=== PATIENT | female | born 1985 | race African-American/Black ===

== ENCOUNTER 2022-09-09 19:46 | Emergency (ER) | payer BC, SELFPAY ==
[2022-09-09] VITALS (20 sets, daily range): BP systolic 147–174; BP diastolic 95–124; PULSE 78–105; RESP 15–32; TEMP 37; O2SAT 94–100
--- NOTE | 2022-09-09 20:55 | ED.GENADULT ---
HPI - General Adult General Chief complaint: Allergic Reaction Stated complaint: Allergic reaction Time Seen by Provider: 09/09/22 20:22 History of Present Illness HPI narrative: This is a 37-year-old female presenting ED with a chief complaint of facial swelling. Patient was working out underneath the arch earlier today. patient notes that she has had facial swelling triggered by exercise in the past. She also says there were dogs in the park which have also caused her to have allergies. The patient's symptoms included significant periorbital edema, throat itching and some wheezing. She denies urticaria, nausea vomiting or diarrhea. She did take some Children's Benadryl at home. Related Data Home Medications Medication Instructions Recorded Confirmed dextroamphetamine-amphetamine 10 10 mg PO BID 09/09/22 09/09/22 mg tablet (Adderall) olmesartan 20 tablet 09/09/22 mg-hydrochlorothiazide 12.5 mg tablet Allergies Allergy/AdvReac Type Severity Reaction Status Date / Time dog dander Allergy Swelling Verified 09/09/22 20:12 of the Eye [facility] Past Medical History Medical History ADHD Anaphylaxis Eczema Hypertension Social History Social History (Updated 09/09/22 @ 21:00 by Arthur Rosa MD) Social History: Uses alcohol occasionally, denies tobacco or drug use. Exam Narrative: APPEARANCE: No apparent distress. Head: periorbital edema EYES: EOMI, NOSE: Atraumatic NECK: Trachea midline, no stridor RESPIRATORY: No increased rate of breathing, no wheezing CARDIOVASCULAR: RRR, no peripheral edema ABDOMINAL: Non-distended MUSCULOSKELETAl: No obvious deformities NEURO: Alert. Moving 4/4 extremities SKIN:: Warm, dry. Normal color PSYCHIATRIC: Normal affect Course Vital Signs Vital signs: Vital Signs Temperature 98.6 F 09/09/22 19:50 Pulse Rate 105 H 09/09/22 19:50 Respiratory Rate 20 09/09/22 19:50 Blood Pressure 150/99 H 09/09/22 19:50 Pulse Oximetry 99 09/09/22 19:50 Oxygen Delivery Room Air 09/09/22 19:50 Temperature 98.6 F 09/09/22 19:50 Pulse Rate 86 09/09/22 22:31 Respiratory Rate 23 H 09/09/22 22:31 Blood Pressure 147/105 H 09/09/22 22:31 Pulse Oximetry 100 09/09/22 22:31 Oxygen Delivery Room Air 09/09/22 20:02 Medical Decision Making [facility] Narrative Medical decision making narrative: -Presentation: 37-year-old female presenting with facial swelling, wheezing and throat itching. She took Benadryl before her arrival which has improved some of her symptoms. -DDX includes but is not limited to: Exercise-induced allergies, environmental allergies -Co-morbidities complicating care: hypertension on losartan, ADHD, maximal -Social determinants of health: patient works as a social work case manager for [employer], lives with her daughter -External Chart Review: none -Hx from independent Sources: sister-Josi -Discussion of Management/Consultants: none -Independent interpretation of studies: none Dx tests considered but not ordered: none -Procedures: none -Interventions: 1 L normal saline, 40 mg Pepcid, 50 mg Benadryl, 0.3 mg IM epi, 10 mg dexamethasone, ice pack dyes -Shared decision making / Disposition: 37-year-old female presenting with allergies. Patient has multiple instances of exercise-induced allergies in the past and there are multiple case studies reporting exercised induced anaphylaxis. Patient will be discharged with an EpiPen and primary care follow-up with recommendations to see an nursery school attendant. -RX: EpiPen, Benadryl, Claritin Vital Signs Vital Signs: Vital Signs Temperature 98.6 F 09/09/22 19:50 Pulse Rate 105 H 09/09/22 19:50 Respiratory Rate 20 09/09/22 19:50 Blood Pressure 150/99 H 09/09/22 19:50 Pulse Oximetry 99 09/09/22 19:50 Oxygen Delivery Room Air 09/09/22 19:50 Temperature 98.6 F 09/09/22 19:50 P
[2022-09-09] MEDS: diphenhydrAMINE HCl INJ 50 MG/ML VIAL IV PUSH (21:11)
[2022-09-09] MEDS: FAMOTIDINE 20 MG/2 ML VIAL 40 MG IV PUSH (21:11)
[2022-09-09] MEDS: EPINEPHrine HCL INJ 1 MG/ML AMPUL 0.3 MG IM (21:12)
[2022-09-09] MEDS: SODIUM CHLORIDE 0.9% IV 1,000 ML 999 ML IV CONT (21:13)
== END 2022-09-09 23:30 | disposition home or self-care (01) ==
PROVIDERS: Emergency Provider Emergency Medicine
DX: T78.2XXA Anaphylactic shock, unspecified, initial encounter (principal); I10 Essential (primary) hypertension
CPT/HCPCS: 96361; 96372; 96374; 96375; 99284; J0171; J1100; J1200; J7030

== ENCOUNTER 2025-05-29 18:54 | Emergency (ER) | payer OTHER, SELFPAY ==
--- OUTSIDE RECORDS SUMMARY | 2025-05-29 18:56 | XMS_ITS | Encounter Summary ---
Author Organization [facility] Health Address [address] [place] [address] Care Team Providers Care Chro Name Role Phone Marlen Bonilla Elaine Primary Care Provider [phone] Reason for Visit * Reason Onset Date Comments Refill Request 10/10/2024 Encounter Details Date Type Department Care Team (Late st Contact Info) Description 10/10/2024 Telephone [facility] - Dermatology [address] [place] [address], [place] [id number] Ghazala Romeo PA [address] [place] [address] [address] [place] [address] Refill Request Social History Tobacco Use Types Packs/Day Years Used Date Smoking Tobacco: Never Alcohol Use Standard Drinks/Week Comments No 0 (1 standard drink = 0.6 oz pur e alcohol) Comments No Sex and Gender Information Value Date Recorded Sex Assigned at Not on file Legal Sex Female 5:34 AM SHOE SHINER Gender Identity Not on file Sexual Orientation Not on file documented as of this encounter Miscellaneous Notes * Telephone Encounter - Cindy Ni - 11/02/2024 9:12 AM CDT Called to check status of PA for Dupixent that was submitted on 10/17/24. I was told we will need to resubmit the pa again because their system has been down since Jul 2024 to October 24, 2024. Cindy Ni- Pharmacy Pipeline Operator (Dermatology) * Telephone Encounter - Cindy Ni - 10/17/2024 10:04 AM CDT PA submitted forcontinuation of therapy Dupixent 300mg/2ml pen maintenance dose of 300mg every 2 weeks via [employer] Medicaid[place] currently waiting on decision. Case ID: n/a Provider:[id number] (Ousmane) Cindy Ni Staff Certified Nurse Midwife - Pharmacy Pipeline Operator * Telephone Encounter - Karen Tolentino - 10/16/2024 12:19 PM CDT Pharmacy is requesting a medication refill for Dupixent 300 MG/2ML prefilled pen FAX#[phone] * Telephone Encounter - Tee Mansfield - 10/10/2024 1:57 PM CDT PT CALLED W/ CARELON ON LINE TO DISCUSS Dupixent 300 MG/2ML prefilled pen (Order [id number]) NOT SHOWING ON FILE PLS CALL PT [phone] AND OR CARELON Rx TO DISCUSS OR SEND SCRIPT, THANK YOU. documented in this encounter Plan of Treatment Upcoming Encounters Date Type Department Care Team (Late st Contact Info) Description 06/11/2025 1:50 PM SHOE SHINER Office Visit [facility] - Dermatology [address] [place] [address], [place] [address] Ghazala Romeo PA [address] [place] [address] [address] [place] [address] documented as of this encounter Visit Diagnoses Not on filedocumented in this encounter Care Teams Chro Relationship Specialty Start Date End Date Marlen Bonilla [address] [facility] [address] [place] [address] PCP - General Atomic Welder 04/11/24 documented as of this encounter
--- OUTSIDE RECORDS SUMMARY | 2025-05-29 18:56 | XMS_ITS | Clinical Summary ---
Author Organization [facility] Address [address] [place] [address] Care Team Providers Care Clerical Grader Name Role Phone Irene, Marlen Elaine Primary Care Provider [phone] Source Comments [facility],non-owned Affiliates and Associated Physician Practices is amultiple site organization consisting of ambulatory clinics and hospital sitesin [place], [place], [place] and [place]. This disclosure is being madepursuant to the Care Everywhere program and may not contain all information available regarding this patient. Last updated 18.[facility] Allergies No known active allergies Medications * Be aware that medications may not be up to date on this document. Alwaysverify current medications with the patient. cetirizine (ZyrTEC) 10 MG tablet Active olmesartan-hydr oCHLOROthiazide (Benicar HCT) 20-12.5 MG tablet Active escitalopram (Lexapro) 10 MG tablet Take 1 (one) tablet by mouth once daily Activ e EPINEPHrine (Epipen) 0.3 MG/0.3ML auto-injector pen as directed intramuscularly once for 30 days Active etonogestrel (Nexplanon) 68 MG implant Implanon [id number] dixie Active triamcinolone acetonide (Kenalog) 0.1 % cream Apply to affected area 2 times daily For atopic dermatitis from neck down. Do not apply to face 80 g 3 08/14/19 25 Active hydroquinone (Lustra; Eldoquin) 4 % creamIndication s:Melasma Compounded hydroquinone 4.5% /tretinoin 0.025%/fluocinolone 0.01%/niacinamide 4% . Apply to affected areaon face daily for 8 weeks on then 8 weeks off 30 g 08/14/19 25 Active Dupixent 300 MG/2ML prefilled penIndications: Other atopic dermatitis Inject 2 mL subcutaneously every 14 days Continuation of therapy 2 mL 11 10/14/19 25 Active amphetamine-dex troamphetamine XR 24hr (Adderall XR) 20 MG capsule Take 1 (one) capsule by mouth every morning Active clobetasol (Temovate) 0.05 % solutionIndicat ions:Central centrifugal cicatricial alopecia Apply to affected area on scalp once a day 30 day supply. 50 mL 3 12/09/19 25 Active ketoconazole (Nizoral) 2 % shampooIndicati ons:Central centrifugal cicatricial alopecia Apply to wet hair, leave on for 3 minutes, then rinse; three times weekly. 30 days supply 120 mL 4 12/09/19 25 Active doxycycline hyclate 100 MG tabletIndicatio ns:Central centrifugal cicatricial alopecia Take 1 (one) tablet by mouth 2 times daily 60 tablet 5 12/09/19 25 Active Immunizations Immunization Administration Dates Next Due TDAP (7yrs+) 01/17/2010 Family History Medical History Relation Name Comments Diabetes Father Hypertension Father Cancer Maternal Grandmother Hypercholesterolemia Mother Relation Name Status Comments Father Maternal Grandmother Mother Social History Tobacco Use Types Packs/Day Years Used Date Smoking Tobacco: Never Alcohol Use Standard Drinks/Week Comments No 0 (1 standard drink = 0.6 oz pur e alcohol) Comments No Sex and Gender Information Value Date Recorded Sex Assigned at Not on file Legal Sex Female 5:34 AM MONEY ORDER CLERK Gender Identity Not on file Sexual Orientation Not on file Last Filed Vital Signs Vital Sign Reading Time Taken Comments Blood Pressure 105/68 01/18/2010 9:20 AM CDT Pulse 79 01/18/2010 9:20 AM CDT Temperature 36.8 C (98.3 F) 01/18/2010 9:20 AM CDT Respiratory Rate 20 01/18/2010 9:20 AM CDT Oxygen Saturation 99% 01/16/2010 3:29 PM CDT Inhaled Oxygen Concentration - - Weight 75.3 kg (166 lb) 01/16/2010 12:27 PM CDT Height 160 cm (5' 3) 01/16/2010 12:27 PM CDT Body Mass Index 29.41 01/16/2010 12:27 PM CDT Plan of Treatment Upcoming Encounters Date Type Department Care Team (Late st Contact Info) Description 06/11/2025 1:50 PM MONEY ORDER CLERK Office Visit [facility] - Dermatology [address], [place] [id number] Ghazala Romeo PA [address] [facility] [address] [place] [id number] Health Maintenance Due Date Last Done Comments HIV SCREENING 2001 HEPATITIS B VACCINE (1 of 3 - 19+ 3-dose series) 2005 Cervical Cancer Screening 2007 PAP SMEAR 2007 HPV VACCINE (1 - 3-dose SCDM series) 2013 PAP with HPV 2016 DTAP/TDAP/TD VACCINES (2 - T d or Tdap) 01/18/2020 01/17/2010 DEPRESSION SCREENING 06/28/2024 COVID-19 VACCINE (1 - 2024-2 6 season) 2025 INFLUENZA VACCINE (#1) 2025 ZOSTER VACCINE (1 of 2) 2036 HEPATITIS C SCREENING Completed 03/22/2024 HIB VACCINE Aged Out No longer eligi ble based on patient's age to complete this topic MENINGOCOCCAL (Group B) VACC INE SHARED DECISION-MAKING Aged Out No longer eligibl e based on patient's age to complete this topic MENINGOCOCCAL GROUPS A/C/Y/W VACCINE Aged Out No longer eligible b ased on patient's age to complete this topic PNEUMOCOCCAL VACCINE Aged Out No long er eligible based on patient's age to complete this topic Insurance [facility] Advance Directives * Full Code (Latest Code Status on File) Date Activated Date Inactivated Comments 01/16/2010 12:44 PM 01/19/2010 3:29 AM * Full Code Date Activated Date Inactivated Comments 01/16/2010 12:42 PM 01/16/2010 12:44 PM Care Teams Clerical Grader Relationship Specialty Start Date End Date Marlen Bonilla [address] [facility] [address] [place] [address] PCP - General Traffic Engineering Technician 04/11/24
--- OUTSIDE RECORDS SUMMARY | 2025-05-29 18:56 | XMS_ITS | Clinical Summary ---
Author Organization [facility] Address [facility] access [facility] [place] [address] Care Team Providers Care Scrap Cutter Name Role Phone Marlen Bonilla BUSHWALKING GUIDE Primary Care Provider [phone] Allergies No known active allergies Medications ADDERALL XR 20 MG 24 hr capsule 024 Active cetirizine (ZYRTEC ALLERGY) 10 MG tablet Active EPINEPHrine (EPIPEN 2-RYAN) 0.3 MG/0.3ML injection as directed intramuscularly once for 30 days Active escitalopram (LEXAPRO) 10 MG tablet Take 1 tablet (10 mg total) by mouth daily. Active etonogestrel (IMPLANON) 68 MG SC implant Inject into the skin once. Placed October 2024 Active triamcinolone (KENALOG) 0.1 % creamIndication s:Intrinsic eczema,Eczema of face Apply topically 2 (two) times daily. Rash on neck, face, hands 45 g 2 024 Active doxycycline hyclate (VIBRA-TABS) 100 MG tablet Take 1 tablet (100 mg total) by mouth 2 (two) times daily. PRN 025 Active DUPIXENT 300 MG/2ML injection (PEN) 025 Active ketoconazole (NIZORAL) 2 % shampoo 025 Active folic acid (FOLVITE) 1 MG tablet Take 1 tablet (1 mg total) by mouth daily. Active clobetasol (TEMOVATE) 0.05 % external solution Apply topically 2 (two) times daily. 025 Active Hydroquinone 4 % Cream Compounded hydroquinone 4.5% /tretinoin 0.025%/fluocinolon e 0.01%/niacinamide 4% . Apply to affected areaon face daily for 8 weeks on then 8 weeks off 025 Active Olmesartan Medoxomil-HCTZ 20-12.5 MG TabIndications: Benign essential hypertension Take 1 tablet by mouth daily. 90 tablet 1 025 Active Cholecalciferol (D3 5000) 125 MCG (5000 UT) Cap Take 5,000 Units by mouth daily. 025 Active Na sulfate-K sulfate-Mg sulfate (SUPREP BOWEL PREP KIT) 17.5-3.13-1.6 GM/177ML SolutionIndicat ions:Screening for colon cancer,Family history of colon cancer requiring screening colonoscopy Take 177 mLs by mouth every 12 (twelve) hours. Per GI instructions 354 mL 024 2024 Discontinued Active Problems Problem Noted Date Diagnosed Date Closed nondisplaced fracture of fifth metatarsal bone of right foot with routine healing, subsequent encounter 05/11/2025 Family history of colon canc er requiring screening colonoscopy 05/17/2024 Attention deficit hyperactiv ity disorder (ADHD), combined type 03/22/2024 Benign essential hypertension 03/22/2024 Allergic rhinitis, unspecifi ed seasonality, unspecified trigger 03/22/2024 Intrinsic eczema 03/22/2024 Family history of colon cancer 03/22/2024 Resolved Problems Problem Noted Date Diagnosed Date Resolved Date Screening for colon cancer 05/17/2024 1 07/22/2023 Encounters Date Type Department Care Team Description 05/13/2025 [facility] [place] [facility] [place] [address] [facility] [address] [place] [address] Marlen Bonilla, BUSHWALKING GUIDE ALBUMIN URINE RANDOM W/CREATININE, HEMOGLOBIN, GLYCOSYLATED, COMPREHENSIVE METABOLIC PANEL, CBC W/DIFF 05/11/2025 9:00 AM ANIMAL RIDE ATTENDANT [facility] [place] [address] [place] [address] Marlen Bonilla, BUSHWALKING GUIDE Physical 05/11/2025 Travel 05/07/2025 Travel 04/24/2025 Scan [facility] Scanned, [facility] 04/13/2025 Scan [facility] Scanned, [facility] from Last 3 Months Immunizations Immunization Administration Dates Next Due Dtp (Generic) 03/14/1991, 8,04/26/1987,1986,1986 Fluzone (IIV3, Trivalent, 0. 5 ML Prefilled Syringe) 05/11/2025 HPV GARDASIL 9-VALENT 10/26/2024,03/10/2021,12/26 MMR (MMRII) 04/16/1993 Polio Opv (Generic) 03/14/1991, 9,04/26/1987,1986,1986 Tdap (Adacel) 03/22/2024 Tdap (Generic) 01/17/2010 Family History Medical History Relation Comments Diabetes Father Managed with med ication Hypertension Father Managed with med ication Prostate Cancer Father Cancer Maternal Grandmother - L dilshad Cancer- Smoker Cancer Maternal Uncle 1 - [place] n Cancer Cancer Maternal Uncle 2 -Lung C ancer Hyperlipidemia Mother - Was ma naged with medication Hypertension Mother Colon Cancer Sister 1 Mets to lung and liver Hypertension Sister 1 Hypertension Sister 2 Managed with med ication Relation Status Comments Father Maternal Grandmother Maternal Uncle 1 Maternal Uncle 2 Mother Sister 1 Sister 2 Social History Tobacco Use Types Packs/Day Years Used Date Smoking Tobacco: Never Smokeless Tobacco: Never Tobacco Cessation:Counseling Given: No Alcohol Use Standard Drinks/Week Comments Yes 2 (1 standard drink = 0.6 oz pure alcohol) I drink socially with friends, at events, etc PHQ-2 Answer Date Recorded Patient Health Questionnaire-2 Score 0 05/17/2024 Comments No Sex and Gender Information Value Date Recorded Sex Assigned at Female 03/21/2024 8:04 AM CDT Legal Sex Female 7:19 PM CDT Gender Identity Female 03/21/2024 8:04 AM CDT Sexual Orientation Straight 03/21/2024 8: 04 AM CDT Last Filed Vital Signs Vital Sign Reading Time Taken Comments Blood Pressure 122/82 05/11/2025 9:59 AM ANIMAL RIDE ATTENDANT Pulse 62 05/11/2025 9:15 AM ANIMAL RIDE ATTENDANT Temperature 36.4 C (97.6 F) 05/11/2025 9:15 AM ANIMAL RIDE ATTENDANT Respiratory Rate 16 05/11/2025 9:15 AM ANIMAL RIDE ATTENDANT Oxygen Saturation 100% 05/11/2025 9:15 AM ANIMAL RIDE ATTENDANT Inhaled Oxygen Concentration - - Weight 74.6 kg (164 lb 6.4 oz) 10/26/2024 9:51 A M CDT Height 160 cm (5' 3) 05/11/2025 9:15 AM ANIMAL RIDE ATTENDANT Body Mass Index 29.12 10/26/2024 9:51 AM CDT Plan of Treatment Upcoming Encounters Date Type Department Care Team (Late st Contact Info) Description 11/09/2025 8:40 AM CDT Office Visit [facility] [place] [address] [facility] [address] [place] [address] Marlen Bonilla, BUSHWALKING GUIDE [address] [facility] [address] [place] [address] Health Maintenance Due Date Last Done Comments Cervical Cancer Screening Pap Smear (Age 30 to 64) Every 3 Years 1986 Cervical Cancer Screening Pap with HPV Testing (Age 30 to 64) Every 5 Years 2016 Cervical Cancer Screening with HPV 2016 PHQ-2 (Physician [place]) 06/28/2024 05/17/2024 Annual Physical 05/11/2026 05/11/2025, 03/22/2024 COVID-19 Vaccine (2024- season) 2026 03/19/2022, 05/28/2021, 10/30/2020, Additional history exists Postponed from 02/26/2025 (Patient Refused) Hepatitis B Vaccines (1 of 3 - 19+ 3-dose series) 05/14/2026 Postponed from 2005 (Awaiting Documentation) DTaP, Tdap and Td Vaccines (8 - Td or Tdap) 03/22/2034 03/22/2024, 01/17/2010, 03/14/1991, Additional history exists Hepatitis C Completed 03/22/2024 HPV Vaccines Completed 10/26/2024, 02/26, 01/07/2021 Influenza Adult Completed 05/11/2025 Hepatitis A Vaccines Aged Out No long er eligible based on patient's age to complete this topic Meningococcal B Vaccine Aged Out No l onger eligible based on patient's age to complete this topic Meningococcal Vaccine Aged Out No haleigh gabriele eligible based on patient's age to complete this topic Pneumococcal Vaccine: Pediatrics (0 to 5 Years) and At-Risk Patients (6 to 49 Years) Aged Out No longer eligible based on patient's age to complete this topic RSV Immunizations Under 20 Months Aged Out No longer eligible based on patient's age to complete this topic Procedures Procedure Name Priority Date/Time Associated Diagnosis Comments CBC W/DIFF AUTOMATED Routine 05/11/2025 10:10 AM ANIMAL RIDE ATTENDANT Benign essential hypertension COMPREHENSIVE METABOLIC PANEL Routine 05/11/2025 10:10 AM ANIMAL RIDE ATTENDANT Benign essential hypertension HEMOGLOBIN, GLYCOSYLATED Routine 05/11/2025 10:10 AM ANIMAL RIDE ATTENDANT Screening for diabetes mellitus ALBUMIN URINE RANDOM W/CREATININE Routine 05/11/2025 10:10 AM ANIMAL RIDE ATTENDANT Protein screening HEPATITIS C ANTIBODY Routine 03/22/2024 3:17 PM CDT Need for hepatitis C screening test from Last 3 Months or Most Recently Relevant to Health Maintenance Results * (ABNORMAL) HEMOGLOBIN, GLYCOSYLATED (05/11/2025 10:10 AM ANIMAL RIDE ATTENDANT) HGB A1C 5.4 4.5 - 6.2 % 05/11/2025 3:59 PM ANIMAL RIDE ATTENDANT [facility] ESTIMATED AVG GLUCOSE 108(H) 74 - 106 MG/DL 05/11/2025 3:59 PM ANIMAL RIDE ATTENDANT [facility] BLOOD VENOUS BLOOD SPECIMEN / Unknown 05/11/2025 10:10 AM ANIMAL RIDE ATTENDANT us Marlen Bonilla NP LABORATORY Final Resul t [facility] LEWIS, FRESNO [address] [place] [place] [address], [place] [phone] * (ABNORMAL) COMPREHENSIVE METABOLIC PANEL (05/11/2025 10:10 AM ANIMAL RIDE ATTENDANT) [facility] SODIUM S/P/B 139 136 - 145 MMOL/L 05/11/2025 4:[address] [facility] POTASSIUM S/P/B 3.8 3.5 - 5.1 MMOL/L 05/11/2025 4:[address] [facility] CHLORIDE S/P/B 103 98 - 107 MMOL/L 05/11/2025 4:[address] [facility] CO2 27.2 21 - 32 MMOL/L 05/11/2025 4:[address] [facility] GLUCOSE 81 70 - 99 MG/DL 05/11/2025 4:[address] [facility] BUN 19(H) 7 - 18 MG/DL 05/11/2025 4:[address] [facility] CREATININE S/P/B 0.90 0.55 - 1.02 MG/DL 05/11/2025 4:[address] [facility] CALCIUM S/P/B 8.9 8.4 - 10.5 MG/DL 05/11/2025 4:[address] [facility] BILIRUBIN TOTAL S/P/B 0.3 0.2 - 1.0 MG/DL 05/11/2025 4:[address] [facility] ALKALINE PHOSPHATASE S/P/B 63 37 - 98 U/L 05/11/2025 4:[address] [facility] AST 16 15 - 37 U/L 05/11/2025 4:[address] [facility] ALT 22 14 - 59 U/L 05/11/2025 4:[address] [facility] TOTAL PROTEIN S/P/B 7.0 6.4 - 8.2 G/DL 05/11/2025 4:21 PM ANIMAL RIDE ATTENDANT [facility] ALBUMIN S/P/B 3.7 3.4 - 5.0 G/DL 05/11/2025 4:21 PM ANIMAL RIDE ATTENDANT [facility] ANION GAP 8.8 5 - 15 MMOL/L 05/11/2025 4:21 PM ANIMAL RIDE ATTENDANT [facility] FRESNO Comment:REFERENCE RANGE NOT ESTABLISHED OSMOLALITY (CALC) 289 MOSM/KG 025 4:21 PM ANIMAL RIDE ATTENDANT [facility] FRES[facility] Comment:REFERENCE RANGE NOT ESTABLISHED GFR ESTIMATE 83(L) >90 ML/MIN/1. 73 M2 05/11/2025 4:21 PM ANIMAL RIDE ATTENDANT [facility] GFR NOTES GFR REFERENCE S: 05/11/2025 4:21 PM [facility] Comment: THE ESTIMATED GFR IS CALCULATED USING THE 2020 CKD-EPI EQUATION. THE FOLLOWING CATEGORIES FOR GRADING RENAL FUNCTION ARE RECOMMENDED BY THE INTERNATIONAL SOCIETY OF NEPHROLOGY (KDIGO 2012 CLINICAL PRACTICE GUIDELINE). G1,NORMAL OR HIGH: >89 ml/min/1.73 m2 G2,MILDLY DECREASED: 60-89 ml/min/1.73 m2 G3A,MILDLY TO MODERATELY DECREASED: 45-59 ml/min/1.73 m2 G3B,MODERATELY TO SEVERELY DECREASED: 30-44 ml/min/1.73 m2 G4,SEVERELY DECREASED: 15-29 ml/min/1.73 m2 G5,KIDNEY FAILURE: <15 ml/min/1.73 m2 BLOOD VENOUS BLOOD SPECIMEN / Unknown 05/11/2025 10:10 AM ANIMAL RIDE ATTENDANT us Marlen Bonilla NP LABORATORY Final Resul t [facility] [address] [place] [address], * (ABNORMAL) CBC W/DIFF (05/11/2025 10:10 AM ANIMAL RIDE ATTENDANT) WBC 6.19 4.00 - 10.80 x10'3/uL 05/11/2025 2:45 PM ANIMAL RIDE ATTENDANT [facility] RBC 4.24 4.10 - 5.40 x10'6/uL 05/11/2025 2:[address] [facility] HGB 11.7(L) 12.0 - 16.0 G/DL 05/11/2025 2:[address] [facility] HCT 36.7 36.0 - 47.0 % 05/11/2025 2:[address] [facility] MCV 86.6 78.0 - 100.0 FL 05/11/2025 2:[address] [facility] MCH 27.6 27.0 - 31.0 PG 05/11/2025 2:[address] [facility] MCHC 31.9(L) 33.0 - 36.0 G/DL 05/11/2025 2:[address] [facility] RDW 14.2 11.5 - 14.5 % 05/11/2025 2:[address] [facility] PLT 409(H) 150 - 350 x10'3/uL 05/11/2025 2:[address] [facility] MPV 10.4 7.4 - 10.4 FL 05/11/2025 2:[address] [facility] DIFFERENTIAL TYPE AUTOMATED DIFFERENTIAL 05/11/2025 2:[address] [facility] NEUTROPHILS % 57.1 % 05/11/2025 2:[address] [facility] LYMPHOCYTES % 31.7 % 05/11/2025 2:[address] [facility] MONOCYTES % 9.7 % 05/11/2025 2:[address] [facility] EOSINOPHILS % 1.0 % 05/11/2025 2:[address] [facility] BASOPHILS % 0.3 % 05/11/2025 2:[address] [facility] IMMATURE GRANS % 0.2 % 05/11/2025 2:45 PM ANIMAL RIDE ATTENDANT [facility] ABS. NEUTROPHILS 3.54 1.60 - 8.30 x10'3/uL 05/11/2025 2:45 PM ANIMAL RIDE ATTENDANT [facility] ABS. LYMPHOCYTES 1.96 0.80 - 4.70 x10'3/uL 05/11/2025 2:45 PM ANIMAL RIDE ATTENDANT [facility] ABS. MONOCYTES 0.60 0.00 - 1.50 x10'3/uL 05/11/2025 2:45 PM ANIMAL RIDE ATTENDANT [facility] ABS. EOSINOPHILS 0.06 0.00 - 0.40 x10'3/uL 05/11/2025 2:45 PM ANIMAL RIDE ATTENDANT [facility] ABS. BASOPHILS 0.02 0.00 - 0.20 x10'3/uL 05/11/2025 2:45 PM ANIMAL RIDE ATTENDANT [facility] ABS. IMMATURE GRANULOCYTES 0.01 0.00 - 0.03 x10'3/uL 05/11/2025 2:45 PM ANIMAL RIDE ATTENDANT [facility] BLOOD VENOUS BLOOD SPECIMEN / Unknown 05/11/2025 10:10 AM ANIMAL RIDE ATTENDANT Marlen Bonilla NP LABORATORY Final Resul t [facility] [address] [place] [address], * ALBUMIN URINE RANDOM W/CREATININE (05/11/2025 10:10 AM ANIMAL RIDE ATTENDANT) MICROALBUMIN (U) 5.8 <20 MG/L 05/11/20 3:31 PM ANIMAL RIDE ATTENDANT [facility] CREATININE RANDOM (U) 167.5 MG/DL 05/11/2025 3:31 PM ANIMAL RIDE ATTENDANT [facility] ALBUMIN/CREAT RATIO 3.5 <30 MG/G 05/11/2025 3:31 PM ANIMAL RIDE ATTENDANT [facility] URINE URINE SPECIMEN OBTAINED BY CLEAN CATCH PROCEDURE / Unknown 05/11/2025 10:10 AM ANIMAL RIDE ATTENDANT Marlen Bonilla NP URINE ORDERABLES Final Resu lt -LEVI LALAHUCarlita FRESNO [address] [place] [address], * HEPATITIS C ANTIBODY (03/22/2024 3:17 PM CDT) HEPATITIS C AB NON-REACTI VE NON-REACT TREY 03/24/2024 12:22 PM CDT [facility] Comment: ANTIBODIES TO HCV NOT DETECTED. DOES NOT EXCLUDE THE POSSIBILITY OF EXPOSURE TO HCV. 03/22/2024 3:17 PM CDT Marlen Bonilla NP LABORATORY Final Resul t Performing Organization Address City/State/[facility] Co de Phone Number [facility] [address] [place] [address], [place] [phone] from Last 3 Months or Most Recently Relevant to Health Maintenance Insurance MEDICAID [employer] Care Teams Scrap Cutter Relationship Specialty Start Date End Date Marlen Bonilla NP [address] [facility] [address] [place] [address] PCP - General NURSE PRACTITIONER 03/22/24
--- OUTSIDE RECORDS SUMMARY | 2025-05-29 18:56 | XMS_ITS | Encounter Summary ---
Author Organization [facility] Address [address] [facility] [place] [address] Care Team Providers Care Bone Worker Name Role Phone Marlen Bonilla Elaine Primary Care Provider [phone] Reason for Visit * Reason Onset Date Comments MEDICATION REFILL 08/27/2024 Encounter Details Date Type Department Care Team (Late st Contact Info) Description 08/27/2024 Refill [facility] - Dermatology [address] [place] [address], [place] [id number] Ghazala Romeo PA [address] [place] [address] [address] [place] [address] MEDICATION REFILL Social History Tobacco Use Types Packs/Day Years Used Date Smoking Tobacco: Never Alcohol Use Standard Drinks/Week Comments No 0 (1 standard drink = 0.6 oz pur e alcohol) Comments No Sex and Gender Information Value Date Recorded Sex Assigned at Not on file Legal Sex Female 5:34 AM MANAGER [employer] INS[employer] Gender Identity Not on file Sexual Orientation Not on file documented as of this encounter Miscellaneous Notes * Telephone Encounter - Kimberly Corea - 08/28/2024 10:43 AM CST Requested Prescriptions Pending Prescriptions Disp Refills Dupixent 300 MG/2ML prefilled pen 2 mL 11 Sig: Inject 2 mL subcutaneously every 14 days Continuation of therapy Last visit: 08/14/24 Next visit: 09/06/24 No Lab Kimberly Corea [employer]ER [employer] INSUR[employer] documented in this encounter Plan of Treatment Upcoming Encounters Date Type Department Care Team (Late st Contact Info) Description 06/11/2025 1:50 PM MANAGER LIFE INSURANCE Office Visit [facility] - Dermatology [address] [facility], [place] [address] Ghazala Romeo PA [address] [place] [address] [address] [place] [id number] documented as of this encounter Visit Diagnoses Diagnosis Other atopic dermatitis documented in this encounter Care Teams Bone Worker Relationship Specialty Start Date End Date Marlen Bonilla [address] [facility] [address] [place] [address] PCP - General Chemical Tank Worker 04/11/24 documented as of this encounter
--- OUTSIDE RECORDS SUMMARY | 2025-05-29 18:56 | XMS_ITS | Clinical Summary ---
Author Organization [facility] Address [address] [place] [address] Phone Care Team Providers Care Kiln Firer Name Role Phone Teresa Savage MD Primary Care Provider Allergies No known active allergies Medications dextroamphetami ne-amphetamine (ADDERALL) 10 mg tablet Take 10 mg by mouth 2 times daily. 2 Active escitalopram oxalate (LEXAPRO) 10 mg tablet Take 10 mg by mouth daily. Active doxycycline hyclate (VIBRAMYCIN) 100 mg tablet Take 100 mg by mouth 2 times daily. Active dupilumab (Dupixent Pen) 300 mg/2 mL Pen Injector Inject 300 mg by subcutaneous injection every 2 weeks. 5 Active cholecalciferol (VITAMIN D3) 400 unit Tablet Take 10 mcg by mouth daily. Active cetirizine (ZyrTEC) 10 mg tablet 1 tab(s) orally once a day for 30 days 3 Active clobetasoL (TEMOVATE) 0.05 % Solution APPLY TOPICALLY TO THE AFFECTED AREA ON SCALP ONCE DAILY DIRECTED Active etonogestreL (NEXPLANON) 68 mg Implant Inject by subcutaneous injection. Active folic acid (FOLVITE) 1 mg tablet Take 1 mg by mouth daily. Active ketoconazole (NIZORAL) 2 % Shampoo 5 Active triamcinolone acetonide (KENALOG) 0.1 % Cream Apply to affected area 2 times daily. 4 Active olmesartan (BENICAR) 20 mg tablet 1 tab(s) orally once a day Active olmesartan-hydr oCHLOROthiazide (BENICAR-HCT) 20-12.5 mg tablet Take 1 Tablet by mouth daily. 5 Active oxyCODONE (ROXICODONE) 5 mg tablet Take 5 mg by mouth every 6 hours as needed for Pain. 5 Active norethindrn a-e estradiol-iron (Microgestin FE 07/17, ,) 1 mg-20 mcg (21)/75 mg (7) tabletIndicatio ns:Menometrorrh agia Take 1 Tablet by mouth daily. 28 Tablet 2 5 Active Active Problems No known active problems Encounters Date Type Department Care Team Description 05/01/2025 10:20 AM SNUFF DRIER Office Visit [facility] [address] [facility] [address] [address] [facility] [address] [place] [phone] David Ye MD Menometrorrhagia (Primary Dx) 05/01/2025 9:00 AM SNUFF DRIER Ancillary Procedure [facility] [address] [facility] [address] [address] [facility] [address] [place] [phone] David Ye MD Menometrorrhagia 04/17/2025 External Device Data STL ABSTRACTION Provider, Abstract 04/13/2025 7:50 AM CDT Office Visit [facility] [address] [facility] [address] [address] [facility] [address] [place] [phone] David Ye MD Menometrorrhagia (Primary Dx) from Last 3 Months Immunizations Immunization Administration Dates Next Due (ADACEL/BOOSTRIX)(10 YR UP) TDAP VACCINE, 0.5ML, IM 03/22/2024,01/17/2010 (GARDASIL 9)(9-45 YRS) HUMAN PAPILLOMAVIRUS VACCINE, TYPES 6, 11, 16, 18, 31, 33, 45, 52, 58, NONAVALENT (9VHPV), 2 OR 3 DOSE, IM 03/10/2021,01/07/2021 (M-M-R II/PRIORIX)(12 MO UP) MEASLES, MUMPS AND RUBELLA VIRUS VACCINE, 0.5 ML IM/SUBCUT 04/16/1993 Diptheria, Tetanus Toxoids, And Whole Cell Pertussis Vaccine (DTP), for intramuscular use 03/14/1991,05/19/1988,04/26/1987,08/27,1986 Poliovirus Vaccine Live Oral 03/14/1991, 09/15/1988,04/26/1987,08/27,1986 Family History Medical History Relation Name Comments Breast Cancer Neg Hx Ovarian Cancer Neg Hx Uterine Cancer Neg Hx Social History Tobacco Use Types Packs/Day Years Used Date Smoking Tobacco: Never Smokeless Tobacco: Never Tobacco Cessation:Counseling Given: Not Answered Comments:hookah Alcohol Use Standard Drinks/Week Comments Yes 0 (1 standard drink = 0.6 oz pur e alcohol) occ Comments No Sex and Gender Information Value Date Recorded Sex Assigned at Female 08/24/2023 12:52 PM SNUFF DRIER Legal Sex Female 2:59 PM CDT Gender Identity Female 08/24/2023 12:52 PM SNUFF DRIER Sexual Orientation Straight 08/24/2023 12 :52 PM SNUFF DRIER Last Filed Vital Signs Vital Sign Reading Time Taken Comments Blood Pressure 122/80 05/01/2025 10:35 AM SNUFF DRIER Pulse 75 07/29/2020 9:10 AM SNUFF DRIER Temperature 36.2 C (97.2 F) 07/29/2020 8:48 AM SNUFF DRIER Respiratory Rate 18 07/29/2020 8:30 AM SNUFF DRIER Oxygen Saturation 100% 07/29/2020 9:10 AM SNUFF DRIER Inhaled Oxygen Concentration - - Weight 83.5 kg (184 lb) 05/01/2025 10:35 AM SNUFF DRIER Height 160 cm (5' 3) 05/01/2025 10:35 AM SNUFF DRIER Body Mass Index 32.59 05/01/2025 10:35 AM SNUFF DRIER Plan of Treatment Health Maintenance Due Date Last Done Comments Pre-Diabetes and Diabetes Screening 1985 HEPATITIS B VACCINES (1 of 3 - 19+ 3-dose series) 2005 INFLUENZA VACCINE (#1) 2025 PAP SMEAR 10/14/2027 10/13/2024, 03/0 06/2023, 12/02/2021, Additional history exists CERVICAL CANCER SCREENING 10/13/2029 HPV/Cotest (21-29) 10/13/2029 10/13/2024, 0 08/27/2023, 12/02/2021, Additional history exists HPV/Cotest (30-65) 10/13/2029 10/13/2024, 0 08/27/2023, 12/02/2021, Additional history exists DTAP/TDAP/TD VACCINES (8 - T d or Tdap) 03/22/2034 03/22/2024, 01/17/2010, 03/14/1991, Additional history exists HPV VACCINES Completed 10/26/2024, 02/26, 01/07/2021 Procedures Procedure Name Priority Date/Time Associated Diagnosis Comments US PELVIC TRANSVAGINAL Routine 05/01/2025 9:08 AM SNUFF DRIER Menometrorrhagia CERV/VAG CYTO AGE BASED SCREEN PAP W CT/NG, TRICH Routine 10/13/2024 11:49 AM CDT Encounter for gynecological examination without abnormal finding from Last 3 Months or Most Recently Relevant to Health Maintenance Results * US PELVIC TRANSVAGINAL (05/01/2025 9:08 AM SNUFF DRIER) Anatomical Region Laterality Modality Pelvis Ultrasound 05/01/2025 8:47 AM SNUFF DRIER Narrative 05/01/2025 9:45 AM SNUFF DRIER CLINIC PELVIC ULTRASOUND ----- Pat. Name: REYNA GIBSON Study Date: 05/01/2025 8:47am Pat. NO: [id number] Referring MD: DAVID YE Site: [address] Building Rental Manager: Tarah Brar RDMS : 1985 Age: 40 ----- INDICATION ----- Menometrorrhagia (Excessive/Frequent Menstruation) CODING ----- Diagnoses N92.1: Breakthrough bleeding Procedures 90240: Ultrasound non OB transvaginal METHOD ----- LEAFLET OR NEWSPAPER DELIVERER Transvaginal US Examination UTERUS ----- Long 93 mm x ap 53 mm x tr 55 mm. Vol 138.8 cm Position: anteverted Myometrium: homogeneous Endometrium: normal. Endometrial thickness, total 8.1 mm Cervix details: contains cystic lesions identified suggesting superficial Nabothian cysts RIGHT OVARY ----- is appropriately sized. Outline: Smooth contours. Size 29 mm x 28 mm x 23 mm. Vol 9.5 cm Cyst(s) Size 15 mm x 8 mm x 15 mm. Mean 12.8 mm. Vol 0.983 cm . Simple LEFT OVARY ----- Enlarged (>= 10 mL). Outline: Smooth contours. Size 45 mm x 37 mm x 25 mm. Vol 21.0 cm Cyst(s) Size 38 mm x 23 mm x 29 mm. Mean 30.0 mm. Vol 13.370 cm . Simple CUL DE SAC ----- No free fluid is seen IMPRESSION ----- Normal follicular activity noted. Procedure Note David Ye MD - 05/01/2025 [facility] PELVIC ULTRASOUND ----- Pat. Name:Gary GIBSONudhenny Date:05/01/2025 8:47am Pat. NO: [id number] MD:DAVID YE Site:[place] [address]ASonographer:Tarah Brar RDMS :1985Age:40 ----- INDICATION ----- Menometrorrhagia (Excessive/Frequent Menstruation) CODING ----- Diagnoses N92.1: Breakthrough bleeding Procedures 10801: Ultrasound non OB transvaginal METHOD ----- LEAFLET OR NEWSPAPER DELIVERER Transvaginal US Examination UTERUS ----- Long 93 mm x ap 53 mm x tr 55 mm. Vol 138.8 cm Position: anteverted Myometrium: homogeneous Endometrium: normal. Endometrial thickness, total 8.1 mm Cervix details: contains cystic lesions identified suggesting superficial Nabothian cysts RIGHT OVARY ----- is appropriately sized. Outline: Smooth contours. Size 29 mm x 28 mm x 23mm. Vol 9.5 cm Cyst(s) Size 15 mm x 8 mm x 15 mm. Mean 12.8 mm. Vol 0.983cm . Simple LEFT OVARY ----- Enlarged (>= 10 mL). Outline: Smooth contours. Size 45 mm x 37 mm x 25 mm.Vol 21.0 cm Cyst(s) Size 38 mm x 23 mm x 29 mm. Mean 30.0 mm. Vol13.370 cm . Simple CUL DE SAC ----- No free fluid is seen IMPRESSION ----- Normal follicular activity noted. us David T Ephraim MD ORDERABLES Final Result * CERV/VAG CYTO AGE BASED SCREEN PAP W CT/NG, TRICH (10/13/2024 11:49 AM CDT) COMMENT (PAP): [facility] Comment: This order for age-based cervical cancer and STI screening follows ACOG guidelines(PB 168, 140, KRR753). See individual assays for performing site location. CLINICAL INFORMATION [facility] Comment:SCREENING LAST MENSTRUAL PERIOD [facility] Comment:[id number] PREV PAP: [facility] Comment:NONE GIVEN PREV BX: [facility] Comment:NONE GIVEN SOURCE [facility] Comment:Endocervix ADEQUACY: [facility] Comment: Satisfactory for evaluation. Endocervical/transformation zone component present. PAP INTERP [facility] Comment: Cytology Results: Negative for intraepithelial lesion or malignancy. COMMENT (PAP TEST) [facility] Comment: This Pap test has been evaluated with computer assisted technology. MICROFILM TECHNICIAN: Antonio est [facility] Comment: ABC, CT(ASCP) CT screening location: [place] [address] [place] [address] EXPLANATORY NOTE [facility] Comment: EXPLANATORY NOTE: The Pap is a screening test for cervical cancer. It is not a diagnostic test and is subject to false negative and false positive results. It is most reliable when a satisfactory sample, regularly obtained, is submitted with relevant clinical findings and history, and when the Pap result is evaluated along with historic and current clinical information. HPV E6/E7 Not Detected Not Detected [facility] Comment: Methodology: Manager Utilization Management-Mediated Amplification This assay detects E6/E7 viral messenger RNA (mRNA) from 14 high-risk HPV types (16,18,31,33,35,39,45,51,52,56,58,59,66,68). Cervical sources are required for HPV testing. If a vaginal source from a patient who has had a total hysterectomy with removal of cervix was submitted, please contact the testing laboratory for alternative testing options. For additional information, please refer to http://education.[email or web address]/faq/CKZ142g2 (This link if provided for information/ educational purposes only.) CHLAMYDIA TRACHOMATIS RNA, TMA, UROGENITAL NOT DETECTED NOT DETECTED [facility] NEISSERIA GONORRHOEAE RNA, TMA, UROGENITAL NOT DETECTED NOT DETECTED [facility] COMMENT INFECTIOUS DISEASE [facility] Comment: The analytical performance characteristics of this assay, when used to test SurePath(TM) specimens have been determined by [facility]. The modifications have not been cleared or approved by the FDA. This assay has been validated pursuant to the CLIA regulations and is used for clinical purposes. For additional information, please refer to https://SyMynd.Team Apart/faq/WKB548 (This link is being provided for information/ educational purposes only.) TRICHOMONAS VAGINALIS,QUALITAT TREY,PAP VIAL NOT DETECTED NOT DETECTED [facility] Comment: The analytical performance characteristics of this assay have been determined by [facility]. The modifications have not been cleared or approved by the FDA. This assay has been validated pursuant to the CLIA regulations and is used for clinical purposes. For additional information, please refer to [email or web address]/ [email or web address] (This link is being provided for information/ educational purposes only.) Test Performed at: [place] [address] [place] [address] Arthur CEDILLO Genital SWAB OF ENDOCERVIX / Unknown 10/13/2024 11:49 AM CDT 10/16/2024 9:43 AM CDT David Ye MD PATHOLOGY/CYTOLOGY ORDERABLES Final Result [facility] [phone] [facility] [address] [place] [address] from Last 3 Months or Most Recently Relevant to Health Maintenance Insurance RX [facility] Commercial [facility] Care Teams Kiln Firer Relationship Specialty Start Date End Date Teresa Savage MD [address] [place] [address] PCP - General Family Practice 07/22/20
--- OUTSIDE RECORDS SUMMARY | 2025-05-29 18:56 | XMS_ITS | Encounter Summary ---
Author Organization [facility] Address [address] [place] [address] Care Team Providers Care Research Nurse Name Role Phone Marlen Bonilla PMP PROJECT MANAGER Primary Care Provider [phone] Encounter Details Date Type Department Care Team (Latest Contact Info) Description 05/23/2024 10X Technologiest Message Enc [facility] [place] [address] [facility] [address] [place], [place] [id number] Marlen Bonilla, PMP PROJECT MANAGER [address] [facility] [address] [place], [place] [id number] Folate vs Folic Acid Social History Tobacco Use Types Packs/Day Years Used Date Smoking Tobacco: Never Smokeless Tobacco: Never Alcohol Use Standard Drinks/Week Comments Yes 2 [...] Orientation Straight 03/21/2024 8: 04 AM CDT documented as of this encounter Plan of Treatment Upcoming Encounters Date Type Department Care Team ( Contact Info) Description 11/09/2025 8:40 AM CDT Office Visit [facility] [place] [address] [place] [address] Marlen Bonilla NP [address] [facility] [address] [place] [address] documented as of this encounter Visit Diagnoses Not on filedocumented in this encounter Additional Health Concerns Assessment Noted Time PHQ-9 Depression Total Score: 0 05/17/20 24 8:13 AM HEALTH POLICY ANALYST documented as of this encounter Care Teams Research Nurse Relationship Specialty Start Date End Date Marlen Bonilla NP [address] [facility] [address] [place] [address] PCP - General NURSE PRACTITIONER 03/22/24 documented as of this encounter
--- OUTSIDE RECORDS SUMMARY | 2025-05-29 18:56 | XMS_ITS | Encounter Summary ---
Author Organization [facility] Address [address] [facility] [place] [address] Care Team Providers Care Sign Manufacturer Name Role Phone Marlen Bonilla Elaine Primary Care Provider [phone] Reason for Visit * Reason Onset Date Comments MEDICATION REFILL 09/28/2024 Encounter Details Date Type Department Care Team (Late st Contact Info) Description 09/28/2024 Refill [facility] - Dermatology [address] [place] [address], [place] [phone] Ghazala Romeo PA [address] [place] [address] [address] [place] [address] MEDICATION REFILL Social History Tobacco Use Types Packs/Day Years Used Date Smoking Tobacco: Never Alcohol Use Standard Drinks/Week Comments No 0 (1 standard drink = 0.6 oz pur e alcohol) Comments No Sex and Gender Information Value Date Recorded Sex Assigned at Not on file Legal Sex Female 5:34 AM FIRE ALARM REPAIRER Gender Identity Not on file Sexual Orientation Not on file documented as of this encounter Miscellaneous Notes * Telephone Encounter - Kimberly Corea - 10/02/2024 4:54 PM CDT Requested Prescriptions Pending Prescriptions Disp Refills Dupixent 300 MG/2ML prefilled pen 2 mL 11 Sig: Inject 2 mL subcutaneously every 14 days Continuation of therapy Last visit: 09/06/24 Next visit: 12/08/24 Kimberly Corea documented in this encounter Plan of Treatment Upcoming Encounters Date Type Department Care Team (Late st Contact Info) Description 06/11/2025 1:50 PM FIRE ALARM REPAIRER Office Visit [facility] [address] [facility], [place] [address] Ghazala Romeo PA [address] [place] [address] [address] [place] [phone] documented as of this encounter Visit Diagnoses Diagnosis Other atopic dermatitis documented in this encounter Care Teams Sign Manufacturer Relationship Specialty Start Date End Date Marlen Bonilla [address] [facility] [address] [place] [address] PCP - General Cyber Instructor 04/11/24 documented as of this encounter
[2025-05-29 18:58] VITALS: BP 139/94; PULSE 93; RESP 17; TEMP 36.6; O2SAT 100
--- NOTE | 2025-05-29 20:36 | ED.ABDPAIN ---
HPI - Abdominal Pain General Chief Complaint: Abdominal Pain Stated Complaint: stomach ulcer Time Seen by Provider: 05/29/25 20:26 Source: patient Mode of arrival: ambulatory Limitations: no limitations History of Present Illness HPI narrative: Patient is a 40-year-old female presents to the emergency department complaining of abdominal pain. Patient she has been having some burning upper abdominal discomfort since about Wednesday, has a history of peptic ulcer disease, has seen a GI doctor in a while, admits to history of scopes, notes she has been taking Motrin since March for a ankle injury and thinks that may be precipitating. Patient states she started take omeprazole today. Notes the pain is overall been constant, has had some decreased p.o. intake secondary to the discomfort. Denies any fevers. Resistant decreased bowel movements, has not which loops in the past 2 days. Denies any urinary complaints. Denies any recent injuries or recent illness. Admits to nausea. Denies radiation of the discomfort. Eating food seems to make it worse. Related Data Home Medications ?Medication ?Instructions ?Recorded ?Confirmed ?Last Taken ?Type dextroamphetamine-amphetamine 10 10 mg PO BID 09/09/22 04/24/25 Unknown History mg tablet (Adderall) olmesartan 20 tablet 09/09/22 04/24/25 Unknown History mg-hydrochlorothiazide 12.5 mg tablet Allergies Allergy/AdvReac Type Severity Reaction Status Date / Time dog dander Allergy Swelling Verified 05/29/25 08:24 of the Eye Review of Systems Review of Systems: A 10 system review of systems was completed on the patient and is negative except for what is stated in the HPI. Nursing and ancillary documentation was reviewed. PMFSH Past Medical History Medical History Fracture of fifth metatarsal bone of right foot ADHD Eczema Hypertension Anaphylaxis Social History Social History Social History: Uses alcohol occasionally, denies tobacco or drug use. Smoking status: Never smoker Exam Narrative: CONST: No acute distress. Well nourished. HENMT: Head is normocephalic and atraumatic. Moist mucous membranes. No posterior oropharynx erythema. EYES: No scleral icterus. No conjunctival injection or pallor. PERRL. NECK: No meningeal signs. RESP: Able to speak in full sentences. Normal respiratory effort. CTAB. CARDIO: Regular rate. Regular rhythm. 2+ DP and radial pulses bilaterally. GI: Nondistended. No tenderness to palpation. Soft. : No CVA tenderness to palpation. SKIN: No rashes or lesions noted on exposed skin. NEURO: Oriented x3. Moves all extremities. EXTREM/MSK/BACK: No pedal edema. PSYCH: Normal affect. Course Vital Signs Vital signs: Vital Signs Temperature 97.8 F 05/29/25 18:58 Pulse Rate 93 05/29/25 18:58 Respiratory Rate 17 05/29/25 18:58 Blood Pressure 139/94 H 05/29/25 18:58 Pulse Oximetry 100 05/29/25 18:58 Oxygen Delivery Room Air 05/29/25 18:58 Temperature 97.8 F 05/29/25 18:58 Pulse Rate 93 05/29/25 18:58 Respiratory Rate 17 05/29/25 18:58 Blood Pressure 139/94 H 05/29/25 18:58 Pulse Oximetry 100 05/29/25 18:58 Oxygen Delivery Room Air 05/29/25 18:58 [facility] MDM Narrative Medical decision making narrative: Patient presents with the above complaint. Initial vitals are remarkable for no significant abnormalities. Physical examination as noted above. Plan discussed: laboratory analysis. Patient ordered IVF, Protonix, Zofran, GI cocktail. Risks and benefits were reviewed and discussed and radiation exposure vs. diagnostic uncertainty were reviewed. Based on overall clinical presentation and diagnostic data, it was felt the risk of life-threatening or serious pathology was low. Benefits of advanced imaging or other additional testing versus home observation discussed. Shared decision making occurred. Advanced imaging is not deemed necessary based on clinical scenario at this time. May need to return later today or tomorrow to have imaging done if they are worse or not improving. Importance of strict follow up was stressed. On reassessment patient is resting comfortably. No acute distress, notes her symptoms are much improved. Feels well at this time. Tolerating oral intake. Patient was reassessed at the bedside. No changes in physical exam. Patient is in no acute distress. The patient has remained stable throughout the entire ED visit. Counseled patient regarding diagnostic results and potential diagnosis. Anticipatory guidance provided. Patient instructed to follow up with PCP within the next few days and Gastroenterology in the next 1 week. Patient counseled on: false reassurance from an emergency department evaluation; no current evidence of a medical emergency; return immediately for any new, recurrent, worsening, concerning, or refractory symptoms. Patient prescribed omeprazole and Maalox. Prescription sent to preferred pharmacy. Medications discussed with patient. Additional verbal and printed discharge instructions were given and discussed with the patient. Patient verbally acknowledges understanding of condition and discharge instructions. All questions were answered to the patient's satisfaction. Patient is in agreement with the plan of care. The patient is stable for discharge and was discharged without incident. Differential Diagnosis Differential Diagnosis: Gastritis, peptic ulcer disease, pancreatitis, hepatobiliary pathology, constipation, bowel obstruction, GERD. Lab Data MDM Lab Attestation statement: I personally reviewed the patient's lab results. Lab results narrative: CBC reveals a white blood cell count 10.1. Comprehensive metabolic panel reveals a potassium of 3.1. Magnesium is 2.0. Lactic acid is 1.0. Lipase is 38. Urinalysis reveals 2+ ketones, 3-5 RBCs. test is negative. 05/29/25 21:07 05/29/25 21:07 Labs: Lab Results 05/29/25 05/29/25 05/29/25 Range/Units 21:07 22:07 22:11 WBC 10.1 H (4.5-10.0) K/mm3 RBC 4.50 (4.2-5.4) M/mm3 Hgb 12.4 (12.0-15.0) g/dL Hct 37.5 (37.0-47.0) % MCV 83.3 (80-100) fl MCH 27.6 (26-34) pg MCHC 33.1 (32-36) g/dl RDW 14.0 (11.5-14.5) % Plt Count 328 (150-375) k/mm3 MPV 9.7 (7.4-10.4) fl Immature Gran % (Auto) 0.3 (0-0.5) % Neut % (Auto) 75.9 H (45.5-73.1) % Lymph % (Auto) 16.5 L (18.3-44.2) % Nance % (Auto) 7.1 (2.6-8.5) % Eos % (Auto) 0.0 (0-4.4) % Baso % (Auto) 0.2 (0.2-1.2) % Lymph # (Auto) 1.67 (0.9-3.2) K/mm3 Nance # (Auto) 0.7 H (0.1-0.6) K/mm3 Eos # (Auto) 0.0 (0-0.3) K/mm3 Baso # (Auto) 0.0 (0.0-0.1) K/mm3 Abs Immat Gran (auto) 0.03 (0.00-0.031) K/mm3 Absolute Neuts (auto) 7.7 H (1.3-6.7) K/mm3 Absolute Nucleated RBC 0.000 (0.0-0.012) K/mm3 Nucleated RBC % 0.0 (0.0-0.2) % Sodium 133 L (137-145) mmol/L Potassium 3.1 L (3.4-5.0) mmol/L Chloride 101 (98-107) mmol/L Carbon Dioxide 25 (22-30) mmol/L Anion Gap 7 (4-12) mmol/L BUN 9 (7-17) mg/dL Creatinine 0.87 (0.7-1.0) mg/dL Estim Creat Clear Calc 76 ml/min Estimated GFR > 60 (59 - ) Glucose 88 (65-110) mg/dL Lactic Acid 1.0 (0.7-2.0) mmol/L Calcium 8.9 (8.4-10.2) mg/dL Magnesium 2.0 (1.6-2.3) mg/dL Total Bilirubin 0.4 (0.2-1.3) mg/dL AST 23 (14-36) U/L ALT 15 (6-35) U/L Alkaline Phosphatase 72 (38-126) U/L Total Protein 7.7 (6.3-8.2) g/dL Albumin 4.3 (3.5-5.1) g/dL Lipase 38 (23-300) U/L Urine Color Yellow (Yellow) Urine Appearance Clear (Clear) Urine pH 5.5 (5.0-9.0) Ur Specific [place] 1.011 (1.001-1.035) Urine Protein Negative (Negative) mg/dL Urine Glucose (UA) Negative (Negative) mg/dL Urine Ketones 2+ H (Negative) mg/dL Ur Blood (Man) 1+ H (Negative) Urine Nitrate Negative (Negative) Urine Bilirubin Negative (Negative) Urine Urobilinogen 0.2 (<2.0) mg/dL Leukocyte Esterase Rfl Negative (Negative) KATHERYN/UL Urine RBC 3-5 H (0-2) /hpf Urine WBC 0-5 (0-3) /hpf Ur Squamous Epith Cells None seen (Few) /hpf Urine Bacteria None seen /hpf Urine Casts 0-2 POC Urine HCG, Qual Negative (Negative) Discharge Plan Discharge Clinical Impression: Acute hypokalemia Abdominal pain Qualifiers: Abdominal location: epigastric Qualified Code(s): R10.13 - Epigastric pain Patient Disposition: Home Condition: Stable Instructions: Antibiotic Form, Peptic Ulcer (ED), Gastritis (ED), Abdominal Pain (ED) Additional Instructions: Take the antacids as prescribed Maalox as needed, rest stay well hydrated, take Tylenol as needed for any discomfort. Follow up with Gastroenterology in the next 1 week and her primary care physician in the next few days for reassessment. Return immediately to the emergency department for any new or concerning symptoms especially any emergent concerns for life, limb, eyesight. Refrain from any NSAID use. Patient Language: Cymro Prescriptions: New omeprazole 40 mg capsule,delayed release(DR/EC) 40 mg PO DAILY Qty: 30 0RF alum-mag hydroxide-simeth [Maalox Advanced] 200-200-20 mg/5 mL suspension 15 ml PO QID PRN (Reason: dyspepsia) Qty: 3000 0RF Rx Instructions: administer between meals and at bedtime No Action oxycodone 5 mg tablet 5 mg PO Q6H PRN (Reason: pain) Qty: 30 0RF dextroamphetamine-amphetamine [Adderall] 10 mg Tablet 10 mg PO BID Rx Instructions: administer doses at least 4-6 hours apart olmesartan-hydrochlorothiazide 20-12.5 mg Tablet epinephrine 0.3 mg/0.3 mL auto-injector 0.3 mg IM ONCE Qty: 2 0RF Rx Instructions: as a single dose; may repeat once diphenhydramine HCl [Benadryl] 25 mg capsule 25 mg PO TID PRN (Reason: itching) Qty: 30 0RF loratadine [Claritin] 10 mg tablet 10 mg PO DAILY Qty: 30 0RF Follow-up/Referrals: Irene,Marlen Henry APRN [Primary Care Provider, Unknown] - 3 Days Leander Mercado MD [Physician, Gastroenterology] - 1 Week Time of Disposition: 23:25
--- OUTSIDE RECORDS SUMMARY | 2025-05-29 20:50 | XMS_ITS | Clinical Summary ---
Author Organization [facility] Address [address] [place] [address] Phone Care Team Providers Care Girls Swimming Coach Name Role Phone Teresa Savage MD Primary [...] Department Care Team Description 05/01/2025 10:20 AM OFFICE AUDITOR Office Visit [facility] O[facility]YN [address] [facility] [address] [address] [facility] [address] [place] [phone] David Ye MD Menometrorrhagia (Primary Dx) 05/01/2025 9:00 AM OFFICE AUDITOR Ancillary Procedure [facility] OBGYN [address] [facility] [address] [address] [facility] [address] [place] [phone] David Ye MD Menometrorrhagia 04/17/2025 External Device Data STL ABSTRACTION Provider, Abstract 04/13/2025 7:50 AM CDT Office Visit [facility]YN [address] [facility] [address] [address] [facility] [address] [place] [phone] David Ye MD Menometrorrhagia (Primary Dx) from [...] Sex Assigned at Female 08/24/2023 12:52 PM OFFICE AUDITOR Legal Sex Female 2:59 PM CDT Gender Identity Female 08/24/2023 12:52 PM OFFICE AUDITOR Sexual Orientation Straight 08/24/2023 12 :52 PM OFFICE AUDITOR Last Filed Vital Signs Vital Sign Reading Time Taken Comments Blood Pressure 122/80 05/01/2025 10:35 AM OFFICE AUDITOR Pulse 75 07/29/2020 9:10 AM OFFICE AUDITOR Temperature 36.2 C (97.2 F) 07/29/2020 8:48 AM OFFICE AUDITOR Respiratory Rate 18 07/29/2020 8:30 AM OFFICE AUDITOR Oxygen Saturation 100% 07/29/2020 9:10 AM OFFICE AUDITOR Inhaled Oxygen Concentration - - Weight 83.5 kg (184 lb) 05/01/2025 10:35 AM OFFICE AUDITOR Height 160 cm (5' 3) 05/01/2025 10:35 AM OFFICE AUDITOR Body Mass Index 32.59 05/01/2025 10:35 AM OFFICE AUDITOR Plan of Treatment Health Maintenance Due Date [...] US PELVIC TRANSVAGINAL Routine 05/01/2025 9:08 AM OFFICE AUDITOR Menometrorrhagia CERV/VAG CYTO AGE BASED SCREEN PAP W CT/NG, TRICH Routine 10/13/2024 11:49 AM CDT Encounter for gynecological examination without abnormal finding from Last 3 Months or Most Recently Relevant to Health Maintenance Results * US PELVIC TRANSVAGINAL (05/01/2025 9:08 AM OFFICE AUDITOR) Anatomical Region Laterality Modality Pelvis Ultrasound 05/01/2025 8:47 AM OFFICE AUDITOR Narrative 05/01/2025 9:45 AM OFFICE AUDITOR CLINIC PELVIC ULTRASOUND ----- Pat. Name: REYNA GIBSON Study Date: 05/01/2025 8:47am Pat. NO: [id number] Referring MD: DAVID YE Site: [address] Delivery Table Operator: Tarah Brar RDMS : 1985 Age: 40 ----- INDICATION ----- Menometrorrhagia (Excessive/Frequent Menstruation) CODING ----- Diagnoses N92.1: Breakthrough bleeding Procedures 24868: Ultrasound non OB transvaginal METHOD ----- HEAD WAITRESS Transvaginal US Examination UTERUS ----- Long 93 [...] Procedure Note David Ye MD - 05/01/2025 [facility] PELVIC ULTRASOUND ----- Pat. Name:Gary GIBSONudhenny Date:05/01/2025 8:47am Pat. NO: [id number] MD:DAVID YE Site:[place] [address]ASonographer:Tarah Brar RDMS :1985Age:40 ----- INDICATION ----- Menometrorrhagia (Excessive/Frequent Menstruation) CODING ----- Diagnoses N92.1: Breakthrough bleeding Procedures [id number]: Ultrasound non OB transvaginal METHOD ----- HEAD WAITRESS Transvaginal US Examination UTERUS ----- Long 93 [...] TRICH (10/13/2024 11:49 AM CDT) COMMENT (PAP): [facility] Comment: This order for age-based cervical cancer and STI screening follows ACOG guidelines(PB 168, 140, XRZ640). See individual assays for performing site location. CLINICAL INFORMATION [facility] Comment:SCREENING LAST MENSTRUAL PERIOD [facility] Comment:[id number] PREV PAP: [facility] Comment:NONE GIVEN PREV BX: [facility] Comment:NONE GIVEN SOURCE [facility] Comment:Endocervix ADEQUACY: [facility] Comment: Satisfactory for evaluation. Endocervical/transformation zone component present. PAP INTERP [facility] Comment: Cytology Results: Negative for intraepithelial lesion or malignancy. COMMENT (PAP TEST) [facility] Comment: This Pap test has been evaluated with computer assisted technology. FIRER BOILER: Antonio est [facility] Comment: ABC, CT(ASCP) CT screening location: [place] [address] [place] [address] EXPLANATORY NOTE [facility] Comment: EXPLANATORY NOTE: The Pap is a [...] information. HPV E6/E7 Not Detected Not Detected [facility] Comment: Methodology: Covering Machine Tender-Mediated Amplification This assay detects E6/E7 viral messenger RNA (mRNA) from 14 high-risk HPV types (16,18,31,33,35,39,45,51,52,56,58,59,66,68). Cervical sources are required for HPV testing. If a vaginal source from a patient who has had a total hysterectomy with removal of cervix was submitted, please contact the testing laboratory for alternative testing options. For additional information, please refer to http://education.[employer]/faq/LSN452n6 (This link if provided for information/ educational purposes only.) CHLAMYDIA TRACHOMATIS RNA, TMA, UROGENITAL NOT DETECTED NOT DETECTED [facility] NEISSERIA GONORRHOEAE RNA, TMA, UROGENITAL NOT DETECTED NOT DETECTED [facility] COMMENT INFECTIOUS DISEASE [facility] Comment: The analytical performance characteristics of this assay, when used to test SurePath(TM) specimens have been determined by [facility]. The modifications have not been cleared or approved by the FDA. This assay has been validated pursuant to the CLIA regulations and is used for clinical purposes. For additional information, please refer to https://[employer]/faq/MTO359 (This link is being provided for information/ educational purposes only.) TRICHOMONAS VAGINALIS,QUALITAT TREY,PAP VIAL NOT DETECTED NOT DETECTED [facility] Comment: The analytical performance characteristics of this assay have been determined by [facility]. The modifications have not been cleared or approved by the FDA. This assay has been validated pursuant to the CLIA regulations and is used for clinical purposes. For additional information, please refer to http://[employer]/ faq/Trichomonastma (This link is being provided for information/ educational purposes only.) Test Performed at: [place] [address] [place] [address] Arthur [facility] SWAB OF ENDOCERVIX / Unknown 10/13/2024 11:49 AM CDT 10/16/2024 9:43 AM CDT David Ye MD PATHOLOGY/CYTOLOGY ORDERABLES Final Result [facility] [phone] [facility] [address] [place] [address] from Last 3 Months or Most Recently Relevant to Health Maintenance Insurance RX [facility] Commercial [facility] Care Teams Girls Swimming Coach Relationship Specialty Start Date End Date Teresa Savage MD [address] [place] [address] PCP - General Family Practice 07/22/20
--- OUTSIDE RECORDS SUMMARY | 2025-05-29 20:50 | XMS_ITS | Encounter Summary ---
Author Organization [facility] Address [address] [place] [address] Care Team Providers Care C.O.D. Biller Name Role Phone Marlen Bonilla CERTIFIED INCOME TAX PREPARER Primary Care Provider [phone] Encounter Details Date Type Department Care Team (Latest Contact Info) Description 05/23/2024 Vascular Pharmaceuticalst Message Enc [facility] - [place] [address] [facility] [address] [place], [place] [id number] Marlen Bonilla, CERTIFIED INCOME TAX PREPARER [address] [facility] [address] [place], [place] [phone] Folate vs Folic Acid Social History Tobacco [...] Description 11/09/2025 8:40 AM CDT Office Visit [facility] [place] [address] [place] [address] Marlen Bonilla NP [address] [facility] [address] [place] [address] documented as of this encounter Visit Diagnoses Not on filedocumented in this encounter Additional Health Concerns Assessment Noted Time PHQ-9 Depression Total Score: 0 05/17/20 24 8:13 AM DIRECTOR OF INSTITUTIONAL RESEARCH documented as of this encounter Care Teams C.O.D. Biller Relationship Specialty Start Date End Date Marlen Bonilla NP [address] [facility] [address] [place] [address] PCP - General NURSE PRACTITIONER 03/22/24 documented as of this encounter
--- OUTSIDE RECORDS SUMMARY | 2025-05-29 20:51 | XMS_ITS | Encounter Summary ---
Author Organization [facility] Address [address] [facility] [place] [address] Care Team Providers Care Stock Replenisher Name Role Phone Marlen Bonilla Elaine Primary Care Provider [phone] Reason for Visit * Reason Onset Date Comments MEDICATION REFILL 08/27/2024 Encounter Details Date Type Department Care Team (Late st Contact Info) Description 08/27/2024 Refill [facility] - Dermatology [address] [place] [address], [place] [phone] Ghazala Romeo PA [address] [place] [address] [address] [place] [address] MEDICATION REFILL Social History Tobacco Use Types Packs/Day Years Used Date Smoking Tobacco: Never Alcohol Use Standard Drinks/Week Comments No 0 (1 standard drink = 0.6 oz pur e alcohol) Comments No Sex and Gender Information Value Date Recorded Sex Assigned at Not on file Legal Sex Female 5:34 AM PACK WORKER Gender Identity Not on file Sexual Orientation Not on file documented as of this encounter Miscellaneous Notes * Telephone Encounter - Kimberly Corea - 08/28/2024 10:43 AM CST Requested Prescriptions Pending Prescriptions Disp Refills Dupixent 300 MG/2ML prefilled pen 2 mL 11 Sig: Inject 2 mL subcutaneously every 14 days Continuation of therapy Last visit: 08/14/24 Next visit: 09/06/24 No Lab Kimberly Corea WORKER documented in this encounter Plan of Treatment Upcoming Encounters Date Type Department Care Team (Late st Contact Info) Description 06/11/2025 1:50 PM PACK WORKER Office Visit [facility] - Dermatology [address] [facility], [place] [address] Ghazala Romeo PA [address] [place] [address] [address] [place] [phone] documented as of this encounter Visit Diagnoses Diagnosis Other atopic dermatitis documented in this encounter Care Teams Stock Replenisher Relationship Specialty Start Date End Date Marlen Bonilla [address] [facility] [address] [place] [address] PCP - General Business Unit Director 04/11/24 documented as of this encounter
--- OUTSIDE RECORDS SUMMARY | 2025-05-29 20:51 | XMS_ITS | Encounter Summary ---
Author Organization [facility] Address [address] [facility] [place] [address] Care Team Providers Care Cook Fishing Vessel Name Role Phone Marlen Bonilla Elaine Primary Care Provider [phone] Reason for Visit * Reason Onset Date Comments Refill Request 10/10/2024 Encounter Details Date Type Department Care Team (Late st Contact Info) Description 10/10/2024 Telephone [facility] - Dermatology [address] [place] [address], [place] [phone] Ghazala Romeo PA [address] [place] [address] [address] [place] [address] Refill Request Social History Tobacco Use Types Packs/Day Years Used Date Smoking Tobacco: Never Alcohol Use Standard Drinks/Week Comments No 0 (1 standard drink = 0.6 oz pur e alcohol) Comments No Sex and Gender Information Value Date Recorded Sex Assigned at Not on file Legal Sex Female 5:34 AM SUPPLY TEACHER Gender Identity Not on file Sexual Orientation [...] to October 24, 2024. Cindy Ni- [facility] (Dermatology) * Telephone Encounter - Cindy Ni - 10/17/2024 10:04 AM CDT PA submitted forcontinuation of therapy Dupixent 300mg/2ml pen maintenance dose of 300mg every 2 weeks via [place] Medicaid[place] currently [place] on decision. Case ID: n/a Provider:[id number] (Ousmane) Cindy Ni Lipstick Molder - [facility] * Telephone Encounter - Karen Tolentino - 10/16/2024 12:19 PM CDT Pharmacy is requesting a medication refill for Dupixent 300 MG/2ML prefilled pen FAX#[phone] * Telephone Encounter - Tee Mansfield - 10/10/2024 1:57 PM CDT PT CALLED W/ CARELON ON LINE TO DISCUSS Dupixent 300 MG/2ML prefilled pen (Order [id number]) NOT SHOWING ON FILE PLS CALL PT [phone] AND OR CARELON Rx TO DISCUSS OR SEND SCRIPT, THANK YOU. documented in this encounter Plan of Treatment Upcoming Encounters Date Type Department Care Team (Late st Contact Info) Description 06/11/2025 1:50 PM SUPPLY TEACHER Office Visit [facility] Dermatology [address] [place] [address], [place] [address] Ghazala Romeo PA [address] [place] [address] [address] [place] [address] documented as of this encounter Visit Diagnoses Not on filedocumented in this encounter Care Teams Cook Fishing Vessel Relationship Specialty Start Date End Date Marlen Bonilla [address] [facility] [address] [place] [address] PCP - General Air Route Controller 04/11/24 documented as of this encounter
--- OUTSIDE RECORDS SUMMARY | 2025-05-29 20:51 | XMS_ITS | Clinical Summary ---
Author Organization [facility] Address [address] [place] [address] Care Team Providers Care Last Trimmer Name Role Phone Irene, Marlen Elaine Primary Care Provider [phone] Source Comments [facility],non-owned Affiliates and Associated Physician Practices is amultiple site organization consisting of ambulatory clinics and hospital sitesin [place], [place], [place] and [place]. This disclosure is being madepursuant to the Care Everywhere program and may not contain all information available regarding this patient. Last updated 18.[facility] Allergies No known active allergies Medications * [...] Active etonogestrel (Nexplanon) 68 MG implant Implanon [id number] dixie Active triamcinolone acetonide (Kenalog) 0.1 % [...] on file Legal Sex Female 5:34 AM REPAIR SERVICE CLERK Gender Identity Not on file Sexual [...] st Contact Info) Description 06/11/2025 1:50 PM REPAIR SERVICE CLERK Office Visit [facility] - Dermatology [address], [place] [address] Ghazala Romeo PA [address] [facility] [address] DEPT [place] [id number] Health Maintenance Due Date Last Done Comments [...] patient's age to complete this topic Insurance [facility] Advance Directives * Full Code (Latest Code Status on File) Date Activated Date Inactivated Comments 01/16/2010 12:44 PM 01/19/2010 3:29 AM * Full Code Date Activated Date Inactivated Comments 01/16/2010 12:42 PM 01/16/2010 12:44 PM Care Teams Last Trimmer Relationship Specialty Start Date End Date Marlen Bonilla [address] [place] [address] PCP - General Cotton Ball Bagger 04/11/24
--- OUTSIDE RECORDS SUMMARY | 2025-05-29 20:51 | XMS_ITS | Clinical Summary ---
Author Organization [facility] Address [facility] [place] [address] Care Team Providers Care Heating And Ventilation Engineer Name Role Phone Marlen Bonilla NICK SETTER Primary Care Provider [phone] Allergies No known active allergies Medications ADDERALL [...] Department Care Team Description 05/13/2025 [facility] [place] [address] [place] [address] Marlen Bonilla, NICK SETTER ALBUMIN URINE RANDOM W/CREATININE, HEMOGLOBIN, GLYCOSYLATED, COMPREHENSIVE METABOLIC PANEL, CBC W/DIFF 05/11/2025 9:00 AM NURSE LEADER [facility] [place] [address] [place] [address] Marlen Bonilla, NICK SETTER Physical 05/11/2025 Travel 05/07/2025 Travel 04/24/2025 Scan [...] Cancer- Smoker Cancer Maternal Uncle 1 - [place] n Cancer Cancer Maternal Uncle 2 -Lung [...] Comments Blood Pressure 122/82 05/11/2025 9:59 AM NURSE LEADER Pulse 62 05/11/2025 9:15 AM NURSE LEADER Temperature 36.4 C (97.6 F) 05/11/2025 9:15 AM NURSE LEADER Respiratory Rate 16 05/11/2025 9:15 AM NURSE LEADER Oxygen Saturation 100% 05/11/2025 9:15 AM NURSE LEADER Inhaled Oxygen Concentration - - Weight 74.6 kg (164 lb 6.4 oz) 10/26/2024 9:51 A M CDT Height 160 cm (5' 3) 05/11/2025 9:15 AM NURSE LEADER Body Mass Index 29.12 10/26/2024 9:51 AM CDT Plan of Treatment Upcoming Encounters Date Type Department Care Team (Late st Contact Info) Description 11/09/2025 8:40 AM CDT Office Visit [facility] [place] [address] [place] [address] Marlen Bonilla, NICK SETTER [address] [place] [address] Health Maintenance Due Date Last Done Comments Cervical Cancer Screening Pap Smear (Age 30 to 64) Every 3 Years 1986 Cervical Cancer Screening Pap with HPV Testing (Age 30 to 64) Every 5 Years 2016 Cervical Cancer Screening with HPV 2016 PHQ-2 (Physician Palmer) 06/28/2024 05/17/2024 Annual Physical 05/11/2026 05/11/2025, 03/22/2024 [...] CBC W/DIFF AUTOMATED Routine 05/11/2025 10:10 AM NURSE LEADER Benign essential hypertension COMPREHENSIVE METABOLIC PANEL Routine 05/11/2025 10:10 AM NURSE LEADER Benign essential hypertension HEMOGLOBIN, GLYCOSYLATED Routine 05/11/2025 10:10 AM NURSE LEADER Screening for diabetes mellitus ALBUMIN URINE RANDOM W/CREATININE Routine 05/11/2025 10:10 AM NURSE LEADER Protein screening HEPATITIS C ANTIBODY Routine 03/22/2024 3:17 PM CDT Need for hepatitis C screening test from Last 3 Months or Most Recently Relevant to Health Maintenance Results * (ABNORMAL) HEMOGLOBIN, GLYCOSYLATED (05/11/2025 10:10 AM NURSE LEADER) HGB A1C 5.4 4.5 - 6.2 % 05/11/2025 3:59 PM NURSE LEADER [facility] ESTIMATED AVG GLUCOSE 108(H) 74 - 106 MG/DL 05/11/2025 3:59 PM NURSE LEADER [facility] BLOOD VENOUS BLOOD SPECIMEN / Unknown 05/11/2025 10:10 AM NURSE LEADER us Marlen Bonilla NP LABORATORY Final Resul t [facility], [place] [address] [facility] [facility] [place] [address], [place] [phone] * (ABNORMAL) COMPREHENSIVE METABOLIC PANEL (05/11/2025 10:10 AM NURSE LEADER) [facility] SODIUM S/P/B 139 136 - 145 MMOL/L 05/11/2025 4:21 PM [facility] POTASSIUM S/P/B 3.8 3.5 - 5.1 MMOL/L 05/11/2025 4:21 PM [facility] CHLORIDE S/P/B 103 98 - 107 MMOL/L 05/11/2025 4:21 PM [facility] CO2 27.2 21 - 32 MMOL/L 05/11/2025 4:21 PM [facility] GLUCOSE 81 70 - 99 MG/DL 05/11/2025 4:21 PM [facility] BUN 19(H) 7 - 18 MG/DL 05/11/2025 4:21 PM [facility] CREATININE S/P/B 0.90 0.55 - 1.02 MG/DL 05/11/2025 4:21 PM [facility] CALCIUM S/P/B 8.9 8.4 - 10.5 MG/DL 05/11/2025 4:21 PM [facility] BILIRUBIN TOTAL S/P/B 0.3 0.2 - 1.0 MG/DL 05/11/2025 4:21 PM [facility] ALKALINE PHOSPHATASE S/P/B 63 37 - 98 U/L 05/11/2025 4:21 PM [facility] AST 16 15 - 37 U/L 05/11/2025 4:21 PM [facility] ALT 22 14 - 59 U/L 05/11/2025 4:21 PM [facility] TOTAL PROTEIN S/P/B 7.0 6.4 - 8.2 G/DL 05/11/2025 4:21 PM NURSE LEADER [facility] ALBUMIN S/P/B 3.7 3.4 - 5.0 G/DL 05/11/2025 4:21 PM NURSE LEADER [facility] [place] ANION GAP 8.8 5 - 15 MMOL/L 05/11/2025 4:21 PM NURSE LEADER [facility] [place] Comment:REFERENCE RANGE NOT ESTABLISHED OSMOLALITY (CALC) 289 MOSM/KG 025 4:21 PM NURSE LEADER [facility] [place] Comment:REFERENCE RANGE NOT ESTABLISHED GFR ESTIMATE 83(L) >90 ML/MIN/1. 73 M2 05/11/2025 4:21 PM NURSE LEADER [facility] [place] GFR NOTES GFR REFERENCE S: 05/11/2025 4:21 PM [facility] [place] Comment: THE ESTIMATED GFR IS CALCULATED USING [...] BLOOD SPECIMEN / Unknown 05/11/2025 10:10 AM NURSE LEADER us Marlen Bonilla NP LABORATORY Final Resul t [facility] [place] [address] [place] [address], * (ABNORMAL) CBC W/DIFF (05/11/2025 10:10 AM NURSE LEADER) WBC 6.19 4.00 - 10.80 x10'3/uL 05/11/2025 2:45 PM NURSE LEADER [facility] RBC 4.24 4.10 - 5.40 x10'6/uL 05/11/2025 2:45 PM [facility] HGB 11.7(L) 12.0 - 16.0 G/DL 05/11/2025 2:45 PM [facility] HCT 36.7 36.0 - 47.0 % 05/11/2025 2:45 PM [facility] MCV 86.6 78.0 - 100.0 FL 05/11/2025 2:45 PM [facility] MCH 27.6 27.0 - 31.0 PG 05/11/2025 2:45 PM [facility] MCHC 31.9(L) 33.0 - 36.0 G/DL 05/11/2025 2:45 PM [facility] RDW 14.2 11.5 - 14.5 % 05/11/2025 2:45 PM [facility] PLT 409(H) 150 - 350 x10'3/uL 05/11/2025 2:45 PM [facility] MPV 10.4 7.4 - 10.4 FL 05/11/2025 2:45 PM [facility] DIFFERENTIAL TYPE AUTOMATED DIFFERENTIAL 05/11/2025 2:45 PM [facility] NEUTROPHILS % 57.1 % 05/11/2025 2:45 PM [facility] LYMPHOCYTES % 31.7 % 05/11/2025 2:45 PM [facility] MONOCYTES % 9.7 % 05/11/2025 2:45 PM [facility] EOSINOPHILS % 1.0 % 05/11/2025 2:45 PM [facility] BASOPHILS % 0.3 % 05/11/2025 2:45 PM [facility] IMMATURE GRANS % 0.2 % 05/11/2025 2:45 PM NURSE LEADER [facility] ABS. NEUTROPHILS 3.54 1.60 - 8.30 x10'3/uL 05/11/2025 2:45 PM NURSE LEADER [facility] ABS. LYMPHOCYTES 1.96 0.80 - 4.70 x10'3/uL 05/11/2025 2:45 PM NURSE LEADER [facility] ABS. MONOCYTES 0.60 0.00 - 1.50 x10'3/uL 05/11/2025 2:45 PM NURSE LEADER [facility] ABS. EOSINOPHILS 0.06 0.00 - 0.40 x10'3/uL 05/11/2025 2:45 PM NURSE LEADER [facility] ABS. BASOPHILS 0.02 0.00 - 0.20 x10'3/uL 05/11/2025 2:45 PM NURSE LEADER [facility] ABS. IMMATURE GRANULOCYTES 0.01 0.00 - 0.03 x10'3/uL 05/11/2025 2:45 PM NURSE LEADER [facility] BLOOD VENOUS BLOOD SPECIMEN / Unknown 05/11/2025 10:10 AM NURSE LEADER Marlen Bonilla NP LABORATORY Final Resul t [facility] [address] [place] [address], * ALBUMIN URINE RANDOM W/CREATININE (05/11/2025 10:10 AM NURSE LEADER) MICROALBUMIN (U) 5.8 <20 MG/L 05/11/20 3:31 PM NURSE LEADER [facility] CREATININE RANDOM (U) 167.5 MG/DL 05/11/2025 3:31 PM NURSE LEADER [facility] ALBUMIN/CREAT RATIO 3.5 <30 MG/G 05/11/2025 3:31 PM NURSE LEADER [facility] URINE URINE SPECIMEN OBTAINED BY CLEAN CATCH PROCEDURE / Unknown 05/11/2025 10:10 AM NURSE LEADER Marlen Bonilla NP URINE ORDERABLES Final Resu lt -[facility] L[place]arlita [place] [address] [facility] [facility] [place] [address], * HEPATITIS C ANTIBODY (03/22/2024 3:17 PM CDT) HEPATITIS C AB NON-REACTI VE NON-REACT TREY 03/24/2024 12:22 PM CDT [facility] Comment: ANTIBODIES TO HCV NOT DETECTED. DOES NOT EXCLUDE THE POSSIBILITY OF EXPOSURE TO HCV. 03/22/2024 3:17 PM CDT Marlen Bonilla NP LABORATORY Final Resul t Performing Organization Address City/State/[facility] Co de Phone Number [facility] [address] [place] [address], [place] [phone] from Last 3 Months or Most Recently Relevant to Health Maintenance Insurance MEDICAID AMBETTER Care Teams Heating And Ventilation Engineer Relationship Specialty Start Date End Date Marlen Bonilla NP [address] [place] [address] PCP - General NURSE PRACTITIONER 03/22/24
--- OUTSIDE RECORDS SUMMARY | 2025-05-29 20:51 | XMS_ITS | Encounter Summary ---
Author Organization [facility] Address [address] [place] [address] Care Team Providers Care Ship Mate Name Role Phone Marlen Bonilla Elaine Primary Care Provider [phone] Reason for Visit * Reason Onset Date Comments MEDICATION REFILL 09/28/2024 Encounter Details Date Type Department Care Team (Late st Contact Info) Description 09/28/2024 Refill [facility] - Dermatology [address] [place] [address], [place] [id number] Ghazala Romeo PA [address] [place] [address] 3 DE[place] [address] MEDICATION REFILL Social History Tobacco Use Types Packs/Day Years Used Date Smoking Tobacco: Never Alcohol Use Standard Drinks/Week Comments No 0 (1 standard drink = 0.6 oz pur e alcohol) Comments No Sex and Gender Information Value Date Recorded Sex Assigned at Not on file Legal Sex Female 5:34 AM EVENTS SOLUTIONS CONSULTANT Gender Identity Not on file Sexual Orientation [...] st Contact Info) Description 06/11/2025 1:50 PM EVENTS SOLUTIONS CONSULTANT Office Visit [facility] - Dermatology [address] [facility], [place] [address] Ghazala Romeo PA [address] [place] [address] 3 DE[place] [id number] documented as of this encounter Visit Diagnoses Diagnosis Other atopic dermatitis documented in this encounter Care Teams Ship Mate Relationship Specialty Start Date End Date Marlen Bonilla [address] [place] [address] PCP - General Graduate Assistant Athletic Trainer 04/11/24 documented as of this encounter
[2025-05-29] MEDS: SODIUM CHLORIDE 0.9% IV 1,000 ML 999 ML IV CONT (21:11)
[2025-05-29] MEDS: ONDANSETRON INJ 4 MG/2 ML VIAL IV PUSH (21:11)
[2025-05-29] MEDS: PANTOPRAZOLE SODIUM IV 40 MG VIAL IV PUSH (21:11)
[2025-05-29 21:28] LABS: Hematocrit 37.5 % (37.0-47.0); Hemoglobin 12.4 g/dL (12.0-15.0); Immature Granulocyte Percent A 0.3 % (0-0.5); Lymphocytes Absolute Auto 1.67 K/mm3 (0.9-3.2); Mean Corpuscular HGB Conc 33.1 g/dl (32-36); Mean Corpuscular Hemoglobin 27.6 pg (26-34); Mean Corpuscular Volume 83.3 fl (80-100); Nucleated Red Blood Cells Absolute Auto 0.000 K/mm3 (0.0-0.012); Nucleated Red Blood Cells Perc 0.0 % (0.0-0.2); Platelet Count Result 328 k/mm3 (150-375); Red Blood Count 4.50 M/mm3 (4.2-5.4); White Blood Count 10.1 K/mm3 (4.5-10.0)
[2025-05-29] MEDS: BELLADONNA ALK/PHENOB ELIX 10 ML, MAG HYDROX/ALUMINUM HYD/SIMETH 30 ML, LIDOCAINE 2% VI... PO (21:37)
[2025-05-29 21:39] LABS: Alanine Aminotransferase 15 U/L (6-35); Albumin Level 4.3 g/dL (3.5-5.1); Alkaline Phosphatase 72 U/L (38-126); Anion Gap 7 mmol/L (4-12); Aspartate Amino Transferase 23 U/L (14-36); Bilirubin,Total 0.4 mg/dL (0.2-1.3); Blood Urea Nitrogen 9 mg/dL (7-17); Calcium 8.9 mg/dL (8.4-10.2); Carbon Dioxide 25 mmol/L (22-30); Chloride 101 mmol/L (98-107); Estimated CRCL calculation 76 ml/min; Estimated Glomerular Filt Rate > 60; Glucose 88 mg/dL (65-110); Lipase 38 U/L (23-300); Magnesium 2.0 mg/dL (1.6-2.3); Potassium 3.1 mmol/L (3.4-5.0); Sodium 133 mmol/L (137-145); Total Protein 7.7 g/dL (6.3-8.2)
[2025-05-29 22:14] LABS: BEDSIDEPREGUCG Negative (Negative)
[2025-05-29 22:15] LABS: Add Urine Microscopic? YES; Appearance Urine Clear (Clear); Glucose Urine UA Negative (Negative); Leukocyte Esterase Ur Negative LEU/UL (Negative); Nitrate Urine Negative (Negative); Non Pathogenic Casts 0-2; Specific Grav Ur 1.011 (1.001-1.035)
[2025-05-29] MEDS: POTASSIUM CHLORIDE 20 MEQ PACKET (FOR LIQUID) 40 MEQ PO (22:20)
[2025-05-30 00:30] VITALS: BP 117/85; PULSE 70; RESP 20; O2SAT 96
== END 2025-05-30 00:31 | disposition home or self-care (01) ==
PROVIDERS: Emergency Provider Student in an Organized Health Care Education/Training Program; PCP Nurse Practitioner
DX: R10.13 Epigastric pain (principal); E87.6 Hypokalemia; I10 Essential (primary) hypertension; F90.9 Attention-deficit hyperactivity disorder, unspecified type; Z87.11 Personal history of peptic ulcer disease; Z79.899 Other long term (current) drug therapy
CPT/HCPCS: 36415; 80053; 81001; 81025; 83605; 83690; 83735; 85025; 96361; 96374; 96375; 99284; A9270; J2405; J2470; J7030